=== PATIENT | female | born 1960 ===

== ENCOUNTER 2016-10-20 11:09 | Emergency (ER) | payer MEDICAID ==
[2016-10-20 11:27] VITALS: TEMP 98; O2SAT 98
[2016-10-20] MEDS ORDERED: Fluorescein 1 mg Ophthalmic Strip ONE (11:39)
[2016-10-20] MEDS ORDERED: Tetracaine 0.5% Ophth (OR ONLY) ONE (11:39)
[2016-10-20] MEDS ORDERED: Tetanus/Diphtheria Toxoids 0.5 ml Syringe IM ONE ×2 (11:58→12:24)
[2016-10-20] MEDS ORDERED: Fluorescein 1 mg Ophthalmic Strip OD ONE (11:59)
[2016-10-20] MEDS ORDERED: Tetracaine 0.5% Ophth 2 ML BOTTLE OD ONE (11:59)
--- NOTE | 2016-10-20 12:00 | C.PDOC ---
History Of Present Illness 56 yr old female presents to the ER for evaluation of right eye pain and light sensitivity, gradually developing for 1 day. Patient states she accidentally scratched her eye with a plastic tag. Denies vision changes, blurry vision, discharge from eye, FB sensation, headache or dizziness, denies any other active complaints. Time Seen by Provider: 10/20/16 11:37 Chief Complaint (Nursing): Eye Problem History Per: Patient History/Exam Limitations: no limitations Onset/Duration Of Symptoms: Gradual (For 1 day) Current Symptoms Are (Timing): Still Present Past Medical History Reviewed: Historical Data, Nursing Documentation, Vital Signs Vital Signs: Last Vital Signs Temp 98 F 10/20/16 11:21 Pulse 73 10/20/16 11:21 Resp 14 10/20/16 11:21 BP 138/73 10/20/16 11:21 Pulse Ox 98 10/20/16 12:42 - Medical History PMH: Arthritis, Asthma, Deep Vein Thrombosis (blood clot, left neck), Hypercholesterolemia, Hypothyroidism Family History: States: No Known Family Hx - Social History Hx Tobacco Use: No Hx Alcohol Use: No Hx Substance Use: No - Immunization History Hx Tetanus Toxoid Vaccination: Yes (Less than 10 years ago) Hx Influenza Vaccination: No Hx Pneumococcal Vaccination: No Review Of Systems Except As Marked, All Systems Reviewed And Found Negative. Eyes: Positive for: Pain (Right eye), Other ((+) Light sensitivity ). Negative for: Vision Change Neurological: Negative for: Headache, Dizziness Physical Exam - Physical Exam Appears: Well, Non-toxic, No Acute Distress Skin: Normal Color, Warm Eye(s): bilateral: PERRL, EOMI (no pain or limitation on extraocular movement), right: Other ((+)fluoresceine uptake at 9 o'clock. No periorbtal edema or erythema. No eye discharge. Mild conjunctival injection.) Ear(s): Bilateral: Normal Nose: No Flaring Oral Mucosa: Moist Tongue: Normal Appearing Lips: Normal Appearing Throat: No Erythema Neurological/Psych: Oriented x3, Normal Speech ED Course And Treatment O2 Sat by Pulse Oximetry: 98 (RA ) Pulse Ox Interpretation: Normal Progress Note: On re-eavl, VA was retaken by me, after tetracaine applied. R 20 /200, L 20/200, B/L 20/200 w/o correction ( pt admits, use glasses, forgeot at home". Afebrile, hemodynamicaly stable. Non-toxic. Right eye: exam c/w corneal abrasin with fluoresceine uptake. NO pain or limitation on extraocula movement. No periorbital edema or eyrthema. Pt advised and ref. to f/u with ophtalm in 2-3 days for re-eavl. return to ED if any worsening or new changes. Medical Decision Making Medical Decision Making: PLAN: * Tobramycin OD * Tetanus IM Disposition Counseled Patient/Family Regarding: Diagnosis, Need For Followup, Rx Given - Disposition Referrals: Ibrahima Reeves MD [Staff Provider] - Disposition: HOME/ ROUTINE Disposition Time: 12:10 Condition: STABLE Additional Instructions: Eye patch for 1 week Tobradex 0.5 inch to Right eye three times daily Follow up with Ophthalmology in 1-2 days for re-evaluation. return to Ed if any worsening or new changes. Prescriptions: traMADol [Ultram] 50 mg PO TID #7 tab Instructions: Corneal Abrasion (ED) Print Language: UKRAINIAN - Clinical Impression Clinical Impression: Corneal abrasion - PA / SWITCH ADJUSTER / Resident Statement MD/DO has reviewed & agrees with the documentation as recorded. - Scribe Statement The provider has reviewed the documentation as recorded by the Scribe Eli Ellis All medical record entries made by the Scribe were at my direction and personally dictated by me. I have reviewed the chart and agree that the record accurately reflects my personal performance of the history, physical exam, medical decision making, and the department course for this patient. I have also personally directed, reviewed, and agree with the discharge instructions and disposition.
[2016-10-20] MEDS ORDERED: Tobramycin 0.3% OPH OINT ONE (12:10)
[2016-10-20] MEDS ORDERED: Tobramycin/Dexamethasone OPHT OINT OD ONE (12:22)
[2016-10-20 12:53] VITALS: BP 132/72; PULSE 72; RESP 18
== END 2016-10-20 12:53 | disposition home or self-care (01) ==
LOC: C.ER 11:09
DX: S05.01XA Injury of conjunctiva and corneal abrasion without foreign body, right eye, initial encounter (principal); W22.8XXA Striking against or struck by other objects, initial encounter

== ENCOUNTER 2016-12-04 11:58 | Emergency (ER) | payer MEDICAID ==
[2016-12-04 12:02] VITALS: BMI 31.2
[2016-12-04 12:03] VITALS: BP 113/75; PULSE 81; RESP 18; TEMP 97.5; O2SAT 98
--- NOTE | 2016-12-04 12:22 | C.PDOC ---
History Of Present Illness 56 year old female presents to the ED with complaints of a painful mass to the right breast for two weeks. Patient states she received a routine mammogram in Sep 2016 that was negative. She denies trauma or other associated symptoms. Time Seen by Provider: 12/04/16 12:13 Chief Complaint (Nursing): Breast Problem History Per: Patient History/Exam Limitations: no limitations Onset/Duration Of Symptoms: Persistent (2 weeks ) Current Symptoms Are (Timing): Still Present Recent travel outside of the [place]: No Past Medical History Reviewed: Historical Data, Nursing Documentation, Vital Signs Vital Signs: Last Vital Signs Temp 97.5 F L 12/04/16 12:02 Pulse 81 12/04/16 12:02 Resp 18 12/04/16 12:02 BP 113/75 12/04/16 12:02 Pulse Ox 98 12/04/16 13:00 - Medical History PMH: Arthritis, Asthma, Deep Vein Thrombosis (blood clot, left neck), Hypercholesterolemia, Hypothyroidism Family History: States: Unknown Family Hx - Social History Hx Tobacco Use: No Hx Alcohol Use: No Hx Substance Use: No - Immunization History Hx Tetanus Toxoid Vaccination: No Hx Influenza Vaccination: No Hx Pneumococcal Vaccination: No Review Of Systems Constitutional: Negative for: Fever, Chills Respiratory: Negative for: Cough, Shortness of Breath Gastrointestinal: Negative for: Nausea, Vomiting, Abdominal Pain, Diarrhea Skin: Positive for: Other (right breast mass ) Physical Exam - Physical Exam Appears: Non-toxic, No Acute Distress Skin: Warm, Dry Head: Atraumatic Eye(s): bilateral: Normal Inspection Lymphatic: Other (No axilla nodes and no clavicular nodes) Chest: Symmetrical, No Deformity, Other (Left breast less than 1 cm mass, no gross asymmetry, no skin dimpling, and no nipple discharge. Right breath, at 4 o 'clock position, mobile deep subQ nodule with some tenderness and reproducable pain with no fluctuance. ) ED Course And Treatment O2 Sat by Pulse Oximetry: 98 (room air ) Progress Note: Patient was adviced she would need a biopsy for further evaluation. Disposition Counseled Patient/Family Regarding: Diagnosis, Need For Followup - Disposition Referrals: your,pmd [Other] Disposition: HOME/ ROUTINE Disposition Time: 12:21 Condition: GOOD Instructions: Breast Self Exam for Women (ED), Breast Mass (ED) Forms: [employer] (Indian) Print Language: BULGARIAN - Clinical Impression Clinical Impression: Breast nodule - Scribe Statement The provider has reviewed the documentation as recorded by the Scribe Mirlande Sosa All medical record entries made by the Scribe were at my direction and personally dictated by me. I have reviewed the chart and agree that the record accurately reflects my personal performance of the history, physical exam, medical decision making, and the department course for this patient. I have also personally directed, reviewed, and agree with the discharge instructions and disposition.
== END 2016-12-04 12:32 | disposition home or self-care (01) ==
LOC: C.ER 11:58
DX: N63 Unspecified lump in breast (principal)

== ENCOUNTER 2017-03-07 12:42 | Emergency (ER) | payer MEDICAID ==
[2017-03-07 12:43] VITALS: BMI 31.2
[2017-03-07 12:49] VITALS: BP 99/66; PULSE 75; RESP 16; TEMP 98; O2SAT 95
--- NOTE | 2017-03-07 14:19 | C.PDOC ---
History Of Present Illness 57-year-old female, presents to the emergency department with complaints of lower back pain, and nausea, associated with non-bloody/non-bilious vomiting, for the past few days. Patient denies fevers, numbness/weakness/tingling, change in bowel habits, symptoms, or any other associated symptoms. No other complaints at this time. Time Seen by Provider: 03/07/17 13:10 Chief Complaint (Nursing): Back Pain History Per: Patient History/Exam Limitations: no limitations Onset/Duration Of Symptoms: Days Current Symptoms Are (Timing): Still Present Quality Of Discomfort: Sharp Pain Scale Rating Of: 6 Associated Symptoms: denies: Incontinence, New Weakness, New Numbness Exacerbating Factor(s): Turning, Movement Recent travel outside of the [place]: No Past Medical History Reviewed: Historical Data, Nursing Documentation, Vital Signs Vital Signs: Last Vital Signs Temp 98 F 03/07/17 12:44 Pulse 75 03/07/17 12:44 Resp 16 03/07/17 12:44 BP 99/66 L 03/07/17 12:44 Pulse Ox 95 03/07/17 16:54 - Medical History PMH: Arthritis, Asthma, Deep Vein Thrombosis (blood clot, left neck), Hypercholesterolemia, Hypothyroidism Family History: States: No Known Family Hx - Social History Hx Tobacco Use: No Hx Alcohol Use: No Hx Substance Use: No - Immunization History Hx Tetanus Toxoid Vaccination: No Hx Influenza Vaccination: No Hx Pneumococcal Vaccination: No Review Of Systems Except As Marked, All Systems Reviewed And Found Negative. Constitutional: Negative for: Fever, Chills Cardiovascular: Negative for: Chest Pain Respiratory: Negative for: Shortness of Breath Gastrointestinal: Positive for: Nausea, Vomiting Genitourinary: Negative for: Incontinence Musculoskeletal: Positive for: Back Pain Neurological: Negative for: Weakness, Numbness, Headache, Dizziness Physical Exam - Physical Exam Appears: Non-toxic, No Acute Distress Skin: Warm, Dry, No Rash Head: Atraumatic, Normacephalic Eye(s): bilateral: Normal Inspection, PERRL, EOMI Nose: Normal Oral Mucosa: Moist Lips: Normal Appearing Throat: No Erythema, No Exudate Neck: Normal ROM, Supple Chest: Symmetrical Cardiovascular: Rhythm Regular, No Murmur Respiratory: Normal Breath Sounds, No Accessory Muscle Use Gastrointestinal/Abdominal: Bowel Sounds (activer), Soft, No Tenderness Back: Normal Inspection, No CVA Tenderness, No Vertebral Tenderness, Paraspinal Tenderness (paralumbar tenderness) Extremity: Normal ROM, No Tenderness, No Swelling Neurological/Psych: Oriented x3, Normal Speech, Normal Motor Gait: Steady ED Course And Treatment O2 Sat by Pulse Oximetry: 95 (on RA) Pulse Ox Interpretation: Normal - Other Rad XR LS SPINE Interpretation: Accession No. : [id number]. Patient Name / ID : MATILDE ISAACS / [id number]. Exam Date : 03/07/2017 14:00:01 ( Approved ). Study Comment : Sex / Age : F / 57Y. Creator : Araceli Parker MD. Dictator : Araceli Parker MD. Wall Worker : Stained Glass Window Designer : Araceli Parker MD. Approver2 : Report Date : 03/07/2017 15:02:51. My Comment : . PROCEDURE: Radiographs of the Lumbar Spine. HISTORY: low back pain. COMPARISON: No prior. FINDINGS: BONES: Normal alignment. No listhesis. No fracture. DISC SPACES: [id number] degenerative changes. Multilevel marginal osteophyte lipping noted. OTHER FINDINGS: None. IMPRESSION: [id number] degenerative changes. No evidence of acute fracture or subluxation. Medical Decision Making Medical Decision Making: Plan: * X-Ray: Spine * UA/HCG * Reassess and Disposition On re-exam, the patient reports improvement of symptoms. Abdomen is soft, non- tender and tolerating PO well. Lungs are CTA, heart is RRR. Follow up with the medical doctor within 1-2 days. Return if worsened. Disposition - Disposition Referrals: Chintan Connors MD [Non-Staff] - Disposition: HOME/ ROUTINE Disposition Time: 15:55 Condition: GOOD Additional Instructions: Follow up with the medical doctor within 1-2 days. Return if worsened. Prescriptions: Cyclobenzaprine [Cyclobenzaprine HCl] 10 mg PO BID #14 tab Naproxen [Naprosyn] 500 mg PO BID #20 tab Instructions: Acute Low Back Pain (ED) Forms: [employer] (Congolese) - Clinical Impression Clinical Impression: Low back pain, Lumbar sprain - Scribe Statement The provider has reviewed the documentation as recorded by the Scribe (Tamia Montano) All medical record entries made by the Scribe were at my direction and personally dictated by me. I have reviewed the chart and agree that the record accurately reflects my personal performance of the history, physical exam, medical decision making, and the department course for this patient. I have also personally directed, reviewed, and agree with the discharge instructions and disposition.
[2017-03-07 14:37] LABS: RBC URINE 21 /hpf (0-3); URINE BILIRUBIN NEGATIVE (NEGATIVE); URINE BLOOD 1+ (NEGATIVE); URINE COLOR Yellow (YELLOW); URINE GLUCOSE (UA) NORMAL (Normal); URINE KETONE NEGATIVE (NEGATIVE); URINE LEUKOCYTE ESTERASE NEG Leu/uL (Negative); URINE PROTEIN NEGATIVE (NEGATIVE); URINE UROBILINOGEN NORMAL mg/dL (0.2-1.0); WBC URINE 1 /hpf (0-5)
--- NOTE | 2017-03-07 15:04 | RAD ---
PROCEDURE: Radiographs of the Lumbar Spine. HISTORY: low back pain COMPARISON: No prior. FINDINGS: BONES: Normal alignment. No listhesis. No fracture. DISC SPACES: [id number]-bhxmpyfp degenerative changes. Multilevel marginal osteophyte lipping noted. OTHER FINDINGS: None. IMPRESSION: Zcex-na-[id number] degenerative changes. No evidence of acute fracture or subluxation.
== END 2017-03-07 16:09 | disposition home or self-care (01) ==
LOC: C.ER 12:42
DX: S33.5XXA Sprain of ligaments of lumbar spine, initial encounter (principal); X58.XXXA Exposure to other specified factors, initial encounter; M54.5 Low back pain
CPT/HCPCS: 72100; 81001; 84703; 87086; 96372; 99283; J1885